=== PATIENT | female | born 1965 | race Caucasian/White ===

== ENCOUNTER 2017-04-22 02:52 | Observation (INO) | payer OTHER ==
[~2017-04-22] VITALS: Ht 162.6 cm; Wt 99.2 kg
[2017-04-22 03:36] LABS: BASOPHIL COUNT 0.1 K/uL (0-0.1); EOSINOPHIL COUNT 0.1 K/uL (0-0.3); HEMATOCRIT 41.4 % (36.0-46.0); IMMATURE GRANULOCYTE (%) 0.3 % (0.0-0.7); INSTRUMENT ABS NEUTROPHIL CT 8.5 K/uL; LYMPHOCYTE COUNT 0.9 K/uL (1.0-2.8); MCH 31.6 PG (29.0-34.0); MCHC 33.1 G/DL (30.0-36.0); MCV 95.6 FL (83-99); MEAN PLAT.VOLUME 9.8 uM^3 (9.5-12.4); MONOCYTE (%) 5.7 % (3-12); MONOCYTE COUNT 0.6 K/uL (0-0.8); NEUTROPHIL (%) 84.1 % (45-76); NEUTROPHIL COUNT 8.5 K/uL (1.8-6.4); PLATELET COUNT 170 K/uL (156-360); RBC DIS.WIDTH-CV 12.9 % (11.8-14.6); RBC DIS.WIDTH-SD 45.7 % (39-53); RED BLOOD COUNT 4.33 M/uL (3.80-5.20); WHITE BLOOD COUNT 10.2 K/uL (4.1-10.2)
[2017-04-22 03:50] LABS: CHLORIDE 105 mEq/L (99-109); POTASSIUM 4.1 mEq/L (3.7-5.4); SODIUM 138 mEq/L (136-147)
[2017-04-22 03:52] LABS: GLUCOSE 129 mg/dL (70-99)
[2017-04-22 03:53] LABS: ANION GAP 11 MEQ/L (2-14)
[2017-04-22 03:56] LABS: GFR ESTIMATE (CALCULATED) > 59 mL/min/; UREA NITROGEN (BUN) 11 mg/dL (9-23)
[2017-04-22 04:13] LABS: ADD MIUA? YES; BILIRUBIN NEGATIVE; BLOOD LARGE; COLOR YELLOW ((YELLOW)); GLUCOSE (STRIP) NEGATIVE; KETONES NEGATIVE; LEUKOCYTES NEGATIVE; NITRITE NEGATIVE; PROTEIN (STRIP) 100; SPECIFIC GRAVITY 1.013 (1.000-1.030); UROBILINOGEN 0.2 MG/DL (0.2-1.0)
[2017-04-22 04:18] LABS: BACTERIA RARE /HPF; EPITHELIAL CELLS 1+ /HPF; MUCUS TRACE /LPF; RED BLOOD CELLS TNTC /HPF (0-5); WHITE BLOOD CELLS 0-5 /HPF (0-5)
[2017-04-22 09:08] VITALS: BP 168/79
[2017-04-22 11:43] VITALS: BP 134/69
[2017-04-22] MEDS ORDERED: CIPRO500 MG PO (12:59)
[2017-04-22] MEDS ORDERED: ZOFRAN4 MG PO (13:00)
[2017-04-22 15:38] VITALS: BP 137/77
[2017-04-22 20:51] VITALS: BP 148/67
[2017-04-22 23:51] VITALS: BP 110/60
[2017-04-23 03:38] VITALS: BP 112/55
[2017-04-23 09:00] VITALS: BP 106/61
[2017-04-23 09:30] LABS: HEMATOCRIT 36.4 % (36.0-46.0); MCH 31.2 PG (29.0-34.0); MCHC 31.9 G/DL (30.0-36.0); MCV 97.8 FL (83-99); MEAN PLAT.VOLUME 9.8 uM^3 (9.5-12.4); PLATELET COUNT 154 K/uL (156-360); RBC DIS.WIDTH-SD 46.2 % (39-53); RED BLOOD COUNT 3.72 M/uL (3.80-5.20); WHITE BLOOD COUNT 10.5 K/uL (4.1-10.2)
[2017-04-23 09:49] LABS: ANION GAP 7 MEQ/L (2-14); CHLORIDE 113 MEQ/L (99-109); GFR ESTIMATE (CALCULATED) > 59 mL/min/; GLUCOSE 135 mg/dL (70-99); POTASSIUM 3.5 MEQ/L (3.7-5.4); SAMPLE HEMOLYSIS CHECK 0; SAMPLE ICTERIC CHECK 0; SAMPLE LIPEMIA CHECK 0; SODIUM 143 MEQ/L (136-147); UREA NITROGEN (BUN) 9 mg/dL (9-23)
[2017-04-23] MEDS ORDERED: TAMSULOSIN HCL0.4 MG PO (12:07)
[2017-04-23] MEDS ORDERED: PHENAZOPYRIDIN100 MG PO (12:07)
[2017-04-23] MEDS ORDERED: SENNA LAX8.6 MG PO (12:08)
[2017-04-23] MEDS ORDERED: DOCUSATE SODIU100 MG PO (12:08)
[2017-04-23] MEDS ORDERED: OXYBUTYNIN CHLOR5 M1 PO (12:09)
[2017-04-23] MEDS ORDERED: TORADOL10 MG PO (12:10)
[2017-04-23] MEDS ORDERED: ENDOCET 5-3251 EACH PO (12:10)
== END 2017-04-23 13:22 | disposition home or self-care (01) ==
LOC: EME 02:52 → EDOF 07:44 → ENRESERV 07:50 → 5WEST 09:05
PROVIDERS: Emergency Medicine; Nurse Practitioner Adult Health
DX: G89.18 Other acute postprocedural pain (principal); N13.2 Hydronephrosis with renal and ureteral calculous obstruction; R10.31 Right lower quadrant pain; R68.83 Chills (without fever); R11.2 Nausea with vomiting, unspecified
CPT/HCPCS: 74176; 74420; 80048; 81003; 85025; 85027; 87086; 99281; 99285; C1876; G0378; J0690; J1100; J1170; J1885; J2250; J2270; J2405; J3010; J7030

== ENCOUNTER 2017-05-11 19:05 | Emergency (ER) | payer OTHER ==
[~2017-05-11] VITALS: Ht 160 cm; Wt 96.2 kg
[~2017-05-11 19:05] MED LIST: CIPRO500 MG PO; DOCUSATE SODIU100 MG PO; ENDOCET 5-3251 EACH PO; OXYBUTYNIN CHLOR5 M1 PO; PHENAZOPYRIDIN100 MG PO; SENNA LAX8.6 MG PO; TAMSULOSIN HCL0.4 MG PO; TORADOL10 MG PO; URIBEL CAPSULE1 EACH PO; ZOFRAN4 MG PO
[2017-05-11 20:10] LABS: CHLORIDE 105 mEq/L (99-109); SODIUM 139 mEq/L (136-147)
[2017-05-11 20:12] LABS: GLUCOSE 102 mg/dL (70-99); HEMATOCRIT 43.2 % (36.0-46.0); MCHC 32.6 G/DL (30.0-36.0); MCV 94.9 FL (83-99); MEAN PLAT.VOLUME 10.2 uM^3 (9.5-12.4); PLATELET COUNT 211 K/uL (156-360); RBC DIS.WIDTH-CV 12.4 % (11.8-14.6); RBC DIS.WIDTH-SD 43.9 % (39-53); RED BLOOD COUNT 4.55 M/uL (3.80-5.20); WHITE BLOOD COUNT 9.6 K/uL (4.1-10.2)
[2017-05-11 20:14] LABS: ANION GAP 10 MEQ/L (2-14)
[2017-05-11 20:16] LABS: GFR ESTIMATE (CALCULATED) 42 mL/min/
[2017-05-11 20:17] LABS: UREA NITROGEN (BUN) 16 mg/dL (9-23)
[2017-05-11 22:41] LABS: ADD MIUA? YES; BILIRUBIN NEGATIVE; BLOOD MODERATE; COLOR YELLOW ((YELLOW)); GLUCOSE (STRIP) NEGATIVE; KETONES NEGATIVE; LEUKOCYTES NEGATIVE; NITRITE NEGATIVE; PROTEIN (STRIP) NEGATIVE; UROBILINOGEN 0.2 MG/DL (0.2-1.0)
[2017-05-11 22:50] LABS: BACTERIA RARE /HPF; CALCIUM OXALATE CRYSTALS 1+ /HPF; EPITHELIAL CELLS 4+ /HPF; MUCUS TRACE /LPF; UCUL ADDED? YES
[2017-05-12] MEDS ORDERED: PERCOCET 5/31 TABLET PO (00:43)
[2017-05-12] MEDS ORDERED: FLOMAX0.4 MG PO (00:43)
[2017-05-12] MEDS ORDERED: KEFLEX500 MG PO (00:43)
[2017-05-12] MEDS ORDERED: ZOFRAN ODT4 MG PO (00:45)
[2017-05-12 01:04] VITALS: BP 110/78
[2017-05-16] MEDS ORDERED: BACTRIM,SEPT1 TABLET PO (14:54)
[2017-05-16] MEDS ORDERED: PERCOCET 5/31 TABLET PO (14:55)
== END 2017-05-12 01:05 | disposition home or self-care (01) ==
LOC: EME 19:05
DX: N20.0 Calculus of kidney (principal); R31.9 Hematuria, unspecified; Z87.442 Personal history of urinary calculi
CPT/HCPCS: 74176; 80048; 81003; 85027; 87086; 99281; 99285; J1885; J2405; J3010; J7030

== ENCOUNTER 2017-05-18 07:49 | Day surgery (SDC) | payer OTHER ==
[~2017-05-18] VITALS: Ht 162.6 cm; Wt 92.9 kg
[~2017-05-18 07:49] MED LIST changes: +BACTRIM,SEPT1 TABLET PO; +FLOMAX0.4 MG PO; +KEFLEX500 MG PO; +PERCOCET 5/31 TABLET PO; +ZOFRAN ODT4 MG PO
[2017-05-18 08:49] VITALS: BP 143/77
[2017-05-18 11:25] VITALS: BP 133/81
== END 2017-05-18 11:55 | disposition home or self-care (01) ==
LOC: SDC
PROVIDERS: Urology
DX: N13.2 Hydronephrosis with renal and ureteral calculous obstruction (principal); E03.9 Hypothyroidism, unspecified; Z87.442 Personal history of urinary calculi
CPT/HCPCS: 74000; 82365 90; C1894; J0690; J1100; J1170; J1580; J1885; J2405; J3010; J7050

== ENCOUNTER 2018-03-21 02:19 | Observation (INO) | payer OTHER ==
[~2018-03-21] VITALS: Ht 162.6 cm; Wt 98.4 kg
[2018-03-21 02:47] LABS: HEMATOCRIT 41.6 % (36.0-46.0); HEMOGLOBIN 14.1 G/DL (11.9-15.5); MCH 31.9 PG (29.0-34.0); MCHC 33.9 G/DL (30.0-36.0); MCV 94.1 FL (83-99); PLATELET COUNT 182 K/uL (156-360); RBC DIS.WIDTH-CV 13.3 % (11.8-14.6); RED BLOOD COUNT 4.42 M/uL (3.80-5.20); WHITE BLOOD COUNT 10.7 K/uL (4.1-10.2)
[2018-03-21 02:56] LABS: APPEARANCE SL.HAZY ((CLEAR)); BILIRUBIN NEGATIVE; BLOOD LARGE; COLOR YELLOW ((YELLOW)); GLUCOSE (STRIP) NEGATIVE; KETONES NEGATIVE; LEUKOCYTES TRACE; NITRITE NEGATIVE; PROTEIN (STRIP) 100; SPECIFIC GRAVITY 1.024 (1.000-1.030); UROBILINOGEN 0.2 MG/DL (0.2-1.0)
[2018-03-21 03:10] LABS: CHLORIDE 105 mEq/L (99-109); SODIUM 139 mEq/L (136-147)
[2018-03-21 03:12] LABS: GLUCOSE 122 mg/dL (70-99)
[2018-03-21 03:16] LABS: CREATININE 1.1 mg/dL (0.6-1.3); GFR ESTIMATE (CALCULATED) 56 mL/min/
[2018-03-21 03:17] LABS: UREA NITROGEN (BUN) 16 mg/dL (9-23)
[2018-03-21 03:20] LABS: BACTERIA NONE SEEN /HPF; CALCIUM OXALATE CRYSTALS 3+ /HPF; EPITHELIAL CELLS 2+ /HPF; MUCUS TRACE /LPF; RED BLOOD CELLS TNTC /HPF (0-5); UCUL ADDED? YES
[2018-03-21 03:26] LABS: QUANTITATIVE HCG < 4.0 MIU/ML
[2018-03-21] MEDS ORDERED: ROXICODONE5 MG PO (07:59)
[2018-03-21 09:00] VITALS: BP 160/76
[2018-03-21 12:32] VITALS: BP 139/81
[2018-03-21 16:11] VITALS: BP 131/62
[2018-03-21 19:20] VITALS: BP 119/61
[2018-03-21 23:35] VITALS: BP 130/60
[2018-03-22 03:20] VITALS: BP 139/65
[2018-03-22 06:04] LABS: HEMATOCRIT 43.1 % (36.0-46.0); HEMOGLOBIN 13.9 G/DL (11.9-15.5); MCH 31.3 PG (29.0-34.0); MCHC 32.3 G/DL (30.0-36.0); MCV 97.1 FL (83-99); RBC DIS.WIDTH-CV 13.2 % (11.8-14.6); RBC DIS.WIDTH-SD 46.9 % (39-53); RED BLOOD COUNT 4.44 M/uL (3.80-5.20); WHITE BLOOD COUNT 20.6 K/uL (4.1-10.2)
[2018-03-22 06:25] LABS: CHLORIDE 105 MEQ/L (99-109); CREATININE 0.9 MG/DL (0.6-1.3); GFR ESTIMATE (CALCULATED) > 59 mL/min/; GLUCOSE 119 mg/dL (70-99); POTASSIUM 4.7 MEQ/L (3.7-5.4); SODIUM 138 MEQ/L (136-147); UREA NITROGEN (BUN) 13 mg/dL (9-23)
[2018-03-22 06:36] LABS: PLATELET COUNT 240 K/uL (156-360)
[2018-03-22 07:02] VITALS: BP 146/70
[2018-03-22 11:11] VITALS: BP 146/73
[2018-03-22 15:17] VITALS: BP 154/98
[2018-03-22 19:00] VITALS: BP 149/67
[2018-03-22 23:46] VITALS: BP 104/51
[2018-03-23 04:10] VITALS: BP 138/69
[2018-03-23 06:57] VITALS: BP 138/76
[2018-03-23 07:47] LABS: HEMATOCRIT 37.3 % (36.0-46.0); HEMOGLOBIN 12.2 G/DL (11.9-15.5); MCH 31.9 PG (29.0-34.0); MCHC 32.7 G/DL (30.0-36.0); MCV 97.4 FL (83-99); PLATELET COUNT 170 K/uL (156-360); RBC DIS.WIDTH-CV 13.8 % (11.8-14.6); RBC DIS.WIDTH-SD 49.1 % (39-53); RED BLOOD COUNT 3.83 M/uL (3.80-5.20); WHITE BLOOD COUNT 10.8 K/uL (4.1-10.2)
[2018-03-23] MEDS ORDERED: PHENAZOPYRIDIN100 MG PO (10:20)
[2018-03-23] MEDS ORDERED: BACTRIM,SEPT1 TABLET PO (10:20)
[2018-03-23] MEDS ORDERED: DIFLUCAN150 MG PO (11:24)
[2018-03-23] MEDS ORDERED: ENDOCET 5-3251 EACH PO (11:24)
== END 2018-03-23 11:32 | disposition home or self-care (01) ==
LOC: EME 02:19 → CANRESERV 06:32 → EDOF 07:06 → 2EAST 07:06 → ENRESERV 07:20 → 2EAST 08:28 → CANRESERV 03-22 11:28 → 2EAST 03-23 11:32
PROVIDERS: Hospitalist; Internal Medicine
DX: N13.2 Hydronephrosis with renal and ureteral calculous obstruction (principal); Z87.442 Personal history of urinary calculi; E05.00 Thyrotoxicosis with diffuse goiter without thyrotoxic crisis or storm; Z84.1 Family history of disorders of kidney and ureter; Z82.49 Family history of ischemic heart disease and other diseases of the circulatory system; Z82.0 Family history of epilepsy and other diseases of the nervous system
CPT/HCPCS: 74176; 80048; 81003; 84702; 85027; 87040; 87086; 99281; 99285; C1726; C2625; G0378; J0690; J0696; J1100; J1170; J1650; J1885; J2270; J2405; J3010; J7030